=== PATIENT | male | born 1985 | race Hispanic/Latino ===

== ENCOUNTER 2017-01-19 23:38 | Emergency (ER) | payer OTHER ==
[2017-01-19 23:46] VITALS: TEMP 97.3; O2SAT 100
[2017-01-20] MEDS ORDERED: Sodium Chloride 0.9% 1,000 ML IV ONE (00:12)
--- NOTE | 2017-01-20 00:15 | C.PDOC ---
History Of Present Illness Patient is a 31 year old male who presents to the ER with a complaint of not feeling well. Patient admits to using opiates today. Denies any fever, nausea, or vomiting. Chief Complaint (Nursing): Substance Abuse History Per: Patient History/Exam Limitations: no limitations Onset/Duration Of Symptoms: Hrs Current Symptoms Are (Timing): Still Present Suicide/Self Injury Attempted (Context): None Modifying Factor(s): Narcotics (Opiates) Past Medical History Reviewed: Historical Data, Nursing Documentation, Vital Signs Vital Signs: Last Vital Signs Temp 97.3 F L 01/19/17 23:42 Pulse 106 H 01/19/17 23:42 Resp 20 01/19/17 23:42 BP 142/93 H 01/19/17 23:42 Pulse Ox 100 01/20/17 00:17 - Medical History PMH: Depression, Kidney Stones Family History: States: Unknown Family Hx - Social History Hx Alcohol Use: Yes Hx Substance Use: Yes - Immunization History Hx Tetanus Toxoid Vaccination: No Hx Influenza Vaccination: No Hx Pneumococcal Vaccination: No Review Of Systems Except As Marked, All Systems Reviewed And Found Negative. Constitutional: Negative for: Fever, Chills Cardiovascular: Positive for: Palpitations Respiratory: Negative for: Cough, Shortness of Breath Gastrointestinal: Negative for: Nausea, Vomiting, Diarrhea Physical Exam - Physical Exam Appears: Well, Non-toxic Skin: Normal Color, Warm, Dry Head: Atraumatic, Normacephalic Chest: Symmetrical Cardiovascular: Rhythm Regular, No Murmur, Other (Tachycardic) Respiratory: Normal Breath Sounds, No Rales, No Rhonchi, No Wheezing Gastrointestinal/Abdominal: Soft, No Tenderness, No Distention, No Guarding, No Rebound Extremity: Normal ROM, No Tenderness Neurological/Psych: Oriented x3, Normal Speech, Normal Cognition ED Course And Treatment - Laboratory Results Result Diagrams: 01/20/17 00:57 01/20/17 00:57 O2 Sat by Pulse Oximetry: 100 (room air) Pulse Ox Interpretation: Normal Progress Note: Blood work and urinalysis ordered. IV fluids and catapres PO administered. Disposition Counseled Patient/Family Regarding: Diagnosis - Disposition Referrals: [facility] [Outside] Disposition: HOME/ ROUTINE Disposition Time: 02:18 Condition: STABLE Instructions: Polysubstance Abuse (ED) - POA Present On Arrival: None - Clinical Impression Clinical Impression: Substance abuse - Scribe Statement The provider has reviewed the documentation as recorded by the Scribe Umesh Mancia All medical record entries made by the Scribe were at my direction and personally dictated by me. I have reviewed the chart and agree that the record accurately reflects my personal performance of the history, physical exam, medical decision making, and the department course for this patient. I have also personally directed, reviewed, and agree with the discharge instructions and disposition.
[2017-01-20 01:00] LABS: BASO % 0.3 % (0.0-2.0); HEMATOCRIT 45.6 % (35.0-51.0); LYMPH # 1.6 K/uL (1.0-4.3); LYMPH % 11.5 % (20.0-40.0); MEAN CELL VOLUME 87.1 fL (80.0-94.0); MEAN CORPUSCULAR HEMOGLOBIN 29.1 pg (27.0-31.0); MEAN CORPUSCULAR HGB CONC 33.4 g/dL (33.0-37.0); MONO # 0.6 K/uL (0.0-0.8); MONO % 4.5 % (0.0-10.0); RED CELL DISTRIBUTION WIDTH 12.9 % (11.5-14.5); WHITE BLOOD COUNT 13.7 K/uL (4.8-10.8)
[2017-01-20 01:09] LABS: CHLORIDE 105 mmol/L (98-107); SODIUM 144 mmol/L (132-148)
[2017-01-20 01:11] LABS: BILIRUBIN,TOTAL 0.7 mg/dL (0.2-1.3); GFR AFRICAN-AMERICAN > 60
[2017-01-20 01:12] LABS: ALB/GLOB RATIO 1.2 (1.0-2.1); ALKALINE PHOSPHATASE 80 U/L (38-126); ALT/SGPT 31 U/L (21-72); AST/SGOT 37 U/L (17-59); BLOOD UREA NITROGEN 11 mg/dL (9-20); CALCIUM 10.2 mg/dl (8.6-10.4); CARBON DIOXIDE 21 mmol/L (22-30); GLUCOSE,RANDOM 114 mg/dL (75-110); TOTAL PROTEIN 8.8 g/dL (6.3-8.3)
[2017-01-20 01:13] LABS: ALCOHOL SERUM < 10 mg/dl (0-10)
[2017-01-20 01:48] LABS: RBC URINE < 1 /hpf (0-3); URINE BILIRUBIN NEGATIVE (NEGATIVE); URINE BLOOD NEGATIVE (NEGATIVE); URINE COLOR Straw (YELLOW); URINE GLUCOSE (UA) NORMAL (Normal); URINE KETONE TRACE mg/dL (NEGATIVE); URINE LEUKOCYTE ESTERASE NEG Leu/uL (Negative); URINE PROTEIN NEGATIVE (NEGATIVE); URINE UROBILINOGEN NORMAL mg/dL (0.2-1.0); WBC URINE < 1 /hpf (0-5)
[2017-01-20 02:49] VITALS: BP 127/77; PULSE 89; RESP 19
== END 2017-01-20 02:48 | disposition home or self-care (01) ==
LOC: C.ER 23:38
DX: F11.10 Opioid abuse, uncomplicated (principal)
CPT/HCPCS: 80053; 81001; 85025; 99283; G0480; J7040

== ENCOUNTER 2017-01-20 13:47 | Inpatient (IN) | payer SELFPAY ==
[2017-01-20 17:22] LABS: BASO % 0.1 % (0.0-2.0); EOS % 0.2 % (0.0-4.0); HEMATOCRIT 42.2 % (35.0-51.0); LYMPH # 1.9 K/uL (1.0-4.3); LYMPH % 20.5 % (20.0-40.0); MEAN CELL VOLUME 87.5 fL (80.0-94.0); MEAN CORPUSCULAR HEMOGLOBIN 29.5 pg (27.0-31.0); MEAN CORPUSCULAR HGB CONC 33.7 g/dL (33.0-37.0); MEAN PLATELET VOLUME 7.6 fL (7.2-11.7); MONO # 0.5 K/uL (0.0-0.8); MONO % 5.8 % (0.0-10.0); RED CELL DISTRIBUTION WIDTH 13.1 % (11.5-14.5); WHITE BLOOD COUNT 9.3 K/uL (4.8-10.8)
[2017-01-20 17:31] LABS: RBC URINE 8 /hpf (0-3); URINE BACTERIA RARE (<OCC); URINE BILIRUBIN NEGATIVE (NEGATIVE); URINE BLOOD NEGATIVE (NEGATIVE); URINE COLOR Yellow (YELLOW); URINE GLUCOSE (UA) NORMAL (Normal); URINE KETONE 1+ mg/dL (NEGATIVE); URINE LEUKOCYTE ESTERASE NEG Leu/uL (Negative); URINE PROTEIN 1+ mg/dL (NEGATIVE); URINE UROBILINOGEN NORMAL mg/dL (0.2-1.0); WBC URINE 1 /hpf (0-5)
[2017-01-20 17:33] LABS: CHLORIDE 102 mmol/L (98-107); POTASSIUM 3.5 mmol/L (3.6-5.2); SODIUM 141 mmol/L (132-148)
[2017-01-20 17:35] LABS: ALB/GLOB RATIO 1.4 (1.0-2.1); AST/SGOT 24 U/L (17-59); BILIRUBIN,TOTAL 0.3 mg/dL (0.2-1.3); CARBON DIOXIDE 23 mmol/L (22-30); GFR AFRICAN-AMERICAN > 60; TOTAL PROTEIN 7.5 g/dL (6.3-8.3)
[2017-01-20 17:36] LABS: ALCOHOL SERUM < 10 mg/dl (0-10); ALKALINE PHOSPHATASE 75 U/L (38-126); ALT/SGPT 22 U/L (21-72); BLOOD UREA NITROGEN 9 mg/dL (9-20); CALCIUM 9.5 mg/dl (8.6-10.4); GLUCOSE,RANDOM 123 mg/dL (75-110)
--- NOTE | 2017-01-20 18:17 | C.PDOC ---
History Of Present Illness 31 year old male presents to the ED requesting detox from oxycodone ( 90-100mg daily). Patient states he took Xanax and feels "okay". Denies iv drug use or any physical complaints. Time Seen by Provider: 01/20/17 15:47 Chief Complaint (Nursing): Substance Abuse History Per: Patient History/Exam Limitations: no limitations Onset/Duration Of Symptoms: Days Current Symptoms Are (Timing): Still Present Modifying Factor(s): Other (Oxycodone) Past Medical History Reviewed: Historical Data, Nursing Documentation, Vital Signs Vital Signs: Last Vital Signs Temp 98.2 F 01/20/17 15:10 Pulse 87 01/20/17 15:10 Resp 16 01/20/17 15:10 BP 147/85 01/20/17 15:10 Pulse Ox 100 01/20/17 18:39 - Medical History PMH: Depression, Kidney Stones Family History: States: Unknown Family Hx - Social History Hx Alcohol Use: Yes Hx Substance Use: Yes - Immunization History Hx Tetanus Toxoid Vaccination: No Hx Influenza Vaccination: No Hx Pneumococcal Vaccination: No Review Of Systems Except As Marked, All Systems Reviewed And Found Negative. Constitutional: Positive for: Other (requesting detox). Negative for: Fever, Chills Cardiovascular: Negative for: Chest Pain Respiratory: Negative for: Cough, Shortness of Breath Gastrointestinal: Negative for: Nausea, Vomiting Physical Exam - Physical Exam Appears: Non-toxic, No Acute Distress Skin: Normal Color, Warm, Dry Head: Atraumatic, Normacephalic Eye(s): bilateral: Normal Inspection, EOMI Oral Mucosa: Moist Chest: Symmetrical, No Deformity Cardiovascular: Rhythm Regular Respiratory: Normal Breath Sounds, No Decreased Breath Sounds, No Accessory Muscle Use, No Rales, No Rhonchi, No Wheezing Gastrointestinal/Abdominal: Normal Exam, Soft, No Tenderness Extremity: Normal ROM Neurological/Psych: Oriented x3, Normal Speech, Normal Cognition ED Course And Treatment - Laboratory Results Result Diagrams: 01/20/17 17:10 01/20/17 17:10 O2 Sat by Pulse Oximetry: 100 (Room air) Pulse Ox Interpretation: Normal Progress Note: Blood work, urinalysis ordered and reviewed, Pt was given nicotine patch as per request. Case discussed with crisis youth career specialist who agreed to evaluate patient. Crisis youth career specialist discussed with who agreed with plan and admission. Disposition - Disposition Disposition: HOSPITALIZED Disposition Time: 18:30 Condition: STABLE - Clinical Impression Clinical Impression: Opioid dependence - PA / MACHINE LEARNING INTERN / Resident Statement MD/DO has reviewed & agrees with the documentation as recorded. - Scribe Statement The provider has reviewed the documentation as recorded by the Naomieibbry Barraza All medical record entries made by the Kanu were at my direction and personally dictated by me. I have reviewed the chart and agree that the record accurately reflects my personal performance of the history, physical exam, medical decision making, and the department course for this patient. I have also personally directed, reviewed, and agree with the discharge instructions and disposition.
--- NOTE | 2017-01-21 13:42 | PCM.PSYCH ---
Initial Psychiatric Evaluation - Initial Psychiatric Evaluation Type of Admission: Voluntary Legal Status: Capacity Chief Complaint (in patient's own words): "I had some problems" History of Present Illness and Precipitating Events: The patient is seen, chart reviewed and case discussed. This is a 31-year-old male, single, no child, employed as a [employer] for a few weeks, lives with his parents in [place]. The patient admits to using up to 150 mg of oxycodone every day for the past 8 months. He also smokes marijuana daily and used cocaine in the past. He drinks moderately at smokes more than 10 cigarettes a day. He was prescribed 0.5 mg of Xanax but he denies abusing that. This is his first detox and he has never been to any rehabilitation either. He denies psych symptoms but he was given Prozac 2 months ago for depression. Past psych history: Depression, untreated, no admissions and no suicide attempts. Family psych history: mother had alcoholism Medical history: Denies Current Medications: Active Medications Generic Name Dose Route Start Last Admin Trade Name Freq PRN Reason Stop Dose Admin Clonidine HCl 0.1 mg 01/20/17 20:40 Catapres PO Q8 PRN COWS Score More or Equal to 5 Hydroxyzine HCl 25 mg 01/20/17 20:40 Atarax PO Q4H PRN Anxiety Ibuprofen 600 mg 01/20/17 20:40 01/21/17 06:53 Motrin Tab PO 600 mg Q6H PRN Administration Pain, moderate (4-7) Loperamide HCl 2 mg 01/20/17 20:40 01/21/17 06:53 Imodium PO 2 mg Q8 PRN Administration Diarrhea Nicotine 1 patch 01/21/17 09:51 01/21/17 10:02 Nicoderm Cq TD 1 patch DAILY PRN Administration Smoking Cessation Ondansetron HCl 4 mg 01/20/17 20:40 Zofran Tab PO Q8 PRN Nausea/Vomiting Trazodone HCl 100 mg 01/20/17 20:40 01/21/17 00:28 Desyrel PO 100 mg HS PRN Administration Insomnia Past Psychiatric History - Past Psychiatric History Previous Treatment History: None Pertinent Medical Hx (Current Medical&Sleep Prob, Allergies): Allergies Allergy/AdvReac Type Severity Reaction Status Date / Time cefaclor [From Ceclor] Allergy ANAPHYLAXIS Verified 01/19/17 23:46 No Known Home Med 01/19/17 Review of Systems - Neurological Neurological: UNREMARKABLE - Psychiatric Psychiatric: Abnormal Sleep Pattern, Anxiety. absent: Hallucinations, Homicidal Ideation, Paranoia, Suicidal Ideation Mental Status Examination - Personal Presentation Personal Presentation: Looks stated age - Affect Affect: Other (labile) - Motor Activity Motor Activity: Other (fidgety) - Reliability in Providing Information Reliability in Providing Information: Good - Speech Speech: Other (slightly pressured) - Mood Mood: Anxious - Formal Thought Process Formal Thought Process: No Impairment - Cognitive Functions Orientation: Person, Place, Situation, Time Sensorium: Alert Attention/Concentration: Easily distracted Estimate of Intelligence: Average Judgement: Intact, as evidence by: Insight regarding need for hospitalization Memory: Recent intact, as evidence by: Ability to recall events of the day, Remote intact, as evidenced by: Abilit to recall sig. life events - Risk Risk: Diminished functioning - Strength & Assets Inventory Strength & Assets Inventory: Cooperative - Limitations Limitations: Living alone DSM 5 DX - DSM 5 DSM 5 Diagnosis: Opioid withdrawal Opioid use d/o - severe Cocaine use d/o - in remission Cannabis use disorder-severe Depressive disorder unspecified - Recommended/Plan of Treatment Treatment Recommendations and Plan of Treatment: Methadone detox As needed medications Support and psychoeducation Attend groups and activities RI and CBT for abstinence Refer to IOP and MAT Consider gabapentin for cannabis Monitor depressive symptoms Supportive therapy and CBT 32 minutes Projected ELOS: 4 days Prognosis: good with treatment Discharge Plan and Discharge Criteria: no withdrawal symptoms Refer to IOP and MAT - Smoking Cessation Smoking Cessation Initiated: Yes
[2017-01-22 08:20] VITALS: BP 115/80; PULSE 75; RESP 18; TEMP 97.9; O2SAT 97
--- NOTE | 2017-01-22 08:28 | PCM.PYCHDC ---
Mental Status Examination - Mental Status Examination Orientation: Person, Place, Situation, Time Memory: Intact Mood: Anxious Affect: Constricted Speech: Appropriate Attention: WNL Concentration: WNL Association: WNL Fund of Knowledge: WNL Formal Thought Process: No Impairment Suicidal Ideation: No Current Homicidal Ideation?: No Discharge Summary - Discharge Note Reason for Hospitalization: Heroin detox Consultations:: List each consultation separately and include: 1. Reason for request. 2. Findings. 3. Follow-up Summary of Hospital Course include:: 1. Description of specific treatment plan utilized for patients during their course of treatmen. 2. Summarize the time- course for resolution of acute symptoms and/or regressed behaviors. 3. Describe issues identified and worked on during hospitalization. 4. Describe medication utilized. 5. Describe medical problems identified and treated. 6. Reassessment of suicide risk Summary of Hospital Course: The patient is seen, chart reviewed and case discussed. On admission: This is a 31-year-old male, single, no child, employed as a [employer] for a few weeks, lives with his parents in [place]. The patient admits to using up to 150 mg of oxycodone every day for the past 8 months. He also smokes marijuana daily and used cocaine in the past. He drinks moderately at smokes more than 10 cigarettes a day. He was prescribed 0.5 mg of Xanax but he denies abusing that. This is his first detox and he has never been to any rehabilitation either. He denies psych symptoms but he was given Prozac 2 months ago for depression. Past psych history: Depression, untreated, no admissions and no suicide attempts. Family psych history: mother had alcoholism Medical history: Denies Hospital course: The pt was admitted and started on treatment with psychotherapy, support, psychoeducation and medications. SC and CBT used. All the risks and benefits of medications are discussed and the patient understood and agreed. After care discussed with the patient. He was uninterested nd unmotivated. He even asked for AMA d/c after 2 doses but agreed to stay one more night. He was somewhat hyper, distracted, impulsive and clearly under-motivated, minimizing his addiction. He decided to go back to Dr. Snow's IOP - Final Diagnosis (DSM 5) Condition upon Discharge: STABLE DSM 5: Opioid withdrawal Opioid use d/o - severe Cocaine use d/o - in remission Cannabis use disorder-severe Persona;ity disorder unspecified Disposition: HOME/ ROUTINE Follow-up Treatment Plan: Continue below medications after discharge. Follow after care plan as discussed. Kassy OLVERA at [place] Use relapse prevention skills Return to ER or call 911 if suicidal, homicidal or symptoms relapse. Stay away from stress, alcohol and drugs. Prescriptions/Medication Reconciliation: traZODone [Desyrel] 100 mg PO HS PRN #30 tab PRN Reason: Insomnia
== END 2017-01-22 09:15 | disposition home or self-care (01) | DRG 897 ==
LOC: C.ER 13:47 → C.7D 18:24
PROVIDERS: ADMIT Psychiatry & Neurology Psychiatry; ATTEND Psychiatry & Neurology Psychiatry
PROC: HZ2ZZZZ Detoxification Services for Substance Abuse Treatment (ICD-10-PCS; principal; 2017-01-20)
PROC: GZ56ZZZ Individual Psychotherapy, Supportive (ICD-10-PCS; 2017-01-20)
DX: F11.23 Opioid dependence with withdrawal (principal); F32.89 Other specified depressive episodes; F41.9 Anxiety disorder, unspecified; F17.210 Nicotine dependence, cigarettes, uncomplicated; F12.90 Cannabis use, unspecified, uncomplicated; F14.90 Cocaine use, unspecified, uncomplicated; G47.00 Insomnia, unspecified; F19.10 Other psychoactive substance abuse, uncomplicated

== ENCOUNTER 2017-02-22 09:20 | Observation (INO) | payer OTHER ==
[2017-02-22 09:50] VITALS: RESP 14
--- NOTE | 2017-02-22 09:51 | C.PDOC ---
History Of Present Illness 31 year old patient, with a past medical history of kidney stones, presents to the ED complaining of a new onset of left testicular pain for the past 4 days. Patient notes swelling and redness. The pain is worse with movement and palpation. Patient states he is "sitting higher than usual." Patient denies any trauma, UTI symptoms, fever, nausea, or vomiting. He also denies any concern for STD. NEW ONSET L TEST PAIN X 4 DAYS. NO TRAUMA. +SWELL, REDNESS. PAIN WORSE W MOVEMENT, PALPATION. PS "SITTING HIGHER THAN USUAL" DENIES UTI SX, FEVER, NV. DENIES CONCERN FOR STD. EXAM NONTOXIC +MOD SWELL, REDNESS L TESTICLE. DIF TEND +CREMASTERIC. CIRCUM SKIN +REDNESS L SCROTUM. INTACT, NO LESIONS REMAINDER NEG Time Seen by Provider: 02/22/17 09:28 Chief Complaint (Nursing): Male Genitourinary History Per: Patient History/Exam Limitations: no limitations Onset/Duration Of Symptoms: Days (4) Current Symptoms Are (Timing): Still Present Severity: Mild Pain Scale Rating Of: 3 Quality Of Discomfort: "Pain" Alleviating Factors: None Recent travel outside of the [place]: No Past Medical History Reviewed: Historical Data, Nursing Documentation, Vital Signs Vital Signs: Last Vital Signs Temp 98.3 F 02/22/17 09:27 Pulse 90 02/22/17 09:27 Resp 14 02/22/17 09:27 BP 132/84 02/22/17 09:27 Pulse Ox 99 02/22/17 10:35 - Medical History PMH: Kidney Stones - [facility] Procedures DETOXIFICATION SERVICES FOR SUBSTANCE ABUSE TREATMENT (01/20/17) INDIVIDUAL PSYCHOTHERAPY, SUPPORTIVE (01/20/17) Family History: States: Unknown Family Hx - Social History Hx Alcohol Use: Yes Hx Substance Use: Yes ([facility]) - Immunization History Hx Tetanus Toxoid Vaccination: No Hx Influenza Vaccination: No Hx Pneumococcal Vaccination: No Review Of Systems Except As Marked, All Systems Reviewed And Found Negative. Constitutional: Negative for: Fever Gastrointestinal: Negative for: Nausea, Vomiting Genitourinary: Positive for: Other (left testicular pain). Negative for: Dysuria Physical Exam - Physical Exam Appears: Non-toxic, No Acute Distress Skin: Warm, Dry, Other (redness near left scrotum; intact; no lesions) Head: Atraumatic, Normacephalic Eye(s): bilateral: Normal Inspection, EOMI Neck: Normal ROM, Supple Chest: Symmetrical Cardiovascular: Rhythm Regular Respiratory: Normal Breath Sounds, No Accessory Muscle Use, No Rales, No Rhonchi , No Wheezing Gastrointestinal/Abdominal: Soft, No Tenderness, No Guarding, No Rebound Back: Normal Inspection, No CVA Tenderness Male Genital: Circumcised, Other (moderate swelling and redness to the left testicle. diffuse tenderness. cremasteric) Extremity: Normal ROM, No Tenderness Neurological/Psych: Oriented x3, Normal Motor, Normal Sensation Gait: Steady ED Course And Treatment - Laboratory Results Result Diagrams: 02/22/17 10:00 02/22/17 10:00 O2 Sat by Pulse Oximetry: 99 (room air) Pulse Ox Interpretation: Normal Progress - Data Reviewed Data Reviewed: Lab, Diagnostic imaging, Old records ED OBSERVATION Discharge: Yes Date of observation admission: 02/22/17 Time of observation admission: 09:45 - Observation admission statement Patient is being placed in observation because:: TEST PAIN, SWELL, REDNESS - Goals of Observation Goals of observation are:: SX IMPROVE, NO ACUTE FINDINGS - Progress Note Progress Note: 02/22/17 11:43 feels better. will take abx dose after filling prescription. Disposition Counseled Patient/Family Regarding: Studies Performed, Diagnosis, Need For Followup, Rx Given - Disposition Disposition: HOME/ ROUTINE Disposition Time: 11:43 Condition: IMPROVED - Clinical Impression Clinical Impression: Acute epididymitis - Scribe Statement The provider has reviewed the documentation as recorded by the Kanu Plascencia Provider Attestation: All medical record entries made by the Kanu were at my direction and personally dictated by me. I have reviewed the chart and agree that the record accurately reflects my personal performance of the history, physical exam, medical decision making, and the department course for this patient. I have also personally directed, reviewed, and agree with the discharge instructions and disposition.
[2017-02-22 10:10] LABS: BASO % 0.5 % (0.0-2.0); EOS # 0.2 K/uL (0.0-0.7); EOS % 1.9 % (0.0-4.0); HEMATOCRIT 41.2 % (35.0-51.0); LYMPH # 1.8 K/uL (1.0-4.3); LYMPH % 20.3 % (20.0-40.0); MEAN CELL VOLUME 88.5 fL (80.0-94.0); MEAN CORPUSCULAR HEMOGLOBIN 29.7 pg (27.0-31.0); MEAN CORPUSCULAR HGB CONC 33.5 g/dL (33.0-37.0); MEAN PLATELET VOLUME 7.9 fL (7.2-11.7); MONO # 0.7 K/uL (0.0-0.8); MONO % 7.5 % (0.0-10.0); RED CELL DISTRIBUTION WIDTH 12.9 % (11.5-14.5); WHITE BLOOD COUNT 8.8 K/uL (4.8-10.8)
[2017-02-22 10:15] LABS: RBC URINE < 1 /hpf (0-3); URINE BILIRUBIN NEGATIVE (NEGATIVE); URINE BLOOD NEGATIVE (NEGATIVE); URINE COLOR Yellow (YELLOW); URINE GLUCOSE (UA) NORMAL (Normal); URINE KETONE NEGATIVE (NEGATIVE); URINE LEUKOCYTE ESTERASE NEG Leu/uL (Negative); URINE PROTEIN NEGATIVE (NEGATIVE); URINE UROBILINOGEN NORMAL mg/dL (0.2-1.0); WBC URINE 1 /hpf (0-5)
[2017-02-22 10:40] LABS: CHLORIDE 97 mmol/L (98-107); POTASSIUM 4.1 mmol/L (3.6-5.2); SODIUM 140 mmol/L (132-148)
[2017-02-22 10:42] LABS: GFR AFRICAN-AMERICAN > 60
[2017-02-22 10:43] LABS: BLOOD UREA NITROGEN 14 mg/dL (9-20); CARBON DIOXIDE 30 mmol/L (22-30); GLUCOSE,RANDOM 97 mg/dL (75-110)
[2017-02-22 10:44] LABS: CALCIUM 9.2 mg/dl (8.6-10.4)
--- NOTE | 2017-02-22 11:33 | US ---
HISTORY: L TEST RED, SWELL TECHNIQUE: Realtime sonography through the scrotum with color and doppler flow. COMPARISON: None Available. FINDINGS: RIGHT TESTICLE: Measures 2 2.5 x 3 x 4.9 cm. Normal echotexture and flow.Incidental finding(s): 2 mm left testicular cysts. RIGHT EPIDIDYMIS: Epididymal head measures 1.3 x 1.5 cm. Incidental 7 mm epididymal cyst. LEFT TESTICLE: Measures 3.3.2 x 4.5 cm. Normal echotexture and flow. LEFT EPIDIDYMIS: Epididymal head measures 1.2 x 1.5 cm. Incidental cyst 7 mm. Enlargement of the left epididymal tail 1.8 x 2.2 cm. Variable echo characteristics. Hypervascularity. Findings indicative of acute epididymitis. HYDROCELE: Small and bilateral. VARICOCELE: Unilateral, left OTHER FINDINGS: Scrotal thickening/ scrotal edema primarily on the left. IMPRESSION: Acute unilateral left epididymitis. Negative study for orchitis or torsion. Incidental finding(s): Bilateral epididymal cysts. Scrotal edema. 2 mm left testicular cysts. Study completed 11:02. Interpretation completed 11:29.
[2017-02-22 11:56] VITALS: BP 125/73; PULSE 65; TEMP 98.1; O2SAT 98
== END 2017-02-22 11:44 | disposition home or self-care (01) ==
LOC: C.ER 09:20 → C.9OBSV 09:45
PROVIDERS: ADMIT Emergency Medicine; ATTEND Emergency Medicine
DX: N45.1 Epididymitis (principal)
CPT/HCPCS: 76870; 80048; 81001; 85025; 87086; 96374; 99285; G0378; J1885